=== PATIENT | male | born 1980 | race Caucasian/White ===

== ENCOUNTER 2021-09-25 07:35 | Emergency (ER) | payer BC ==
[~2021-09-25] VITALS: Ht 172.7 cm; Wt 88.5 kg
[2021-09-25 08:19] VITALS: BP 129/56
== END 2021-09-25 08:20 | disposition home or self-care (01) ==
LOC: ED 07:35
DX: L02.31 Cutaneous abscess of buttock (principal); Z90.89 Acquired absence of other organs

== ENCOUNTER 2021-11-18 10:44 | Inpatient (IN) | payer BC ==
[~2021-11-18] VITALS: Ht 172.7 cm; Wt 90.3 kg
[2021-11-18 10:56] VITALS: BP 191/120
[2021-11-18] MEDS ORDERED: Carafate1 GM PO (11:01)
[2021-11-18] MEDS ORDERED: PANTOPRAZOLE SO40 MG PO (11:02)
[2021-11-18 11:42] LABS: BASO % 0.4 % (0.0-1.0); EOS # 0.1 10*3/uL (0.0-0.4); EOS % 0.7 % (1.0-4.0); HEMATOCRIT 55.3 % (42.0-52.0); LYMPH # 1.2 10*3/uL (1.3-4.4); LYMPH % 11.1 % (27.0-41.0); MEAN CELL VOLUME 87.6 fl (80.0-94.0); MEAN CORPUSCULAR HGB 28.5 pg (27.0-31.0); MEAN CORPUSCULAR HGB CONC 32.5 g/dl (33.0-37.0); MEAN PLATELET VOLUME 9.9 fl (9.6-12.3); MONO # 0.8 10*3/uL (0.1-1.0); MONO % 7.1 % (3.0-9.0); NEUT # 8.9 10*3/uL (2.3-7.9); NEUT % 80.4 % (47.0-73.0); PLATELET COUNT AUTOMATED 261 10*3/uL (130-400); RED BLOOD COUNT 6.31 10*6/uL (4.50-5.90); RED CELL DISTRI WIDTH 13.8 % (0-14.5)
[2021-11-18 11:57] LABS: ALKALINE PHOSPHATASE 70 U/L (45-117); BUN 16 mg/dl (7-24); CHLORIDE 107 mmol/L (98-107); LIPASE 248 U/L (73-393); POTASSIUM 4.1 mmol/L (3.5-5.1); SGOT/AST 26 IU/L (3-35); SGPT/ALT 45 U/L (12-78); SODIUM 142 mmol/L (136-145); TOTAL PROTEIN 7.4 gm/dL (6.4-8.2)
[2021-11-18 14:19] LABS: BILIRUBIN Negative (Negative); BLOOD Negative (Negative); CLARITY Clear (Clear); COLOR Yellow (Yellow); GLUCOSE Trace (Negative); KETONE Negative (Negative); LEUKO ESTERASE Negative (Negative); NITRITE Negative (Negative); SPECIFIC GRAVITY >= 1.030 (1.001-1.030)
[2021-11-18 14:29] LABS: CALCIUM OXALATE CRYSTALS 1+
[2021-11-18 14:30] LABS: WBC 0-2 wbc/hpf (0-5)
[2021-11-18 14:31] LABS: EPITHELIAL CELLS 0-2
[2021-11-18 16:30] VITALS: BP 114/56
[2021-11-18 20:00] VITALS: BP 112/78; BP 137/97
[2021-11-19] VITALS: BP 140/88
[2021-11-19 06:15] LABS: BASO # 0.1 10*3/uL (0.0-0.1); BASO % 0.5 % (0.0-1.0); EOS # 0.2 10*3/uL (0.0-0.4); EOS % 1.6 % (1.0-4.0); HEMATOCRIT 47.2 % (42.0-52.0); LYMPH # 2.1 10*3/uL (1.3-4.4); LYMPH % 21.5 % (27.0-41.0); MEAN CELL VOLUME 86.1 fl (80.0-94.0); MEAN CORPUSCULAR HGB CONC 33.7 g/dl (33.0-37.0); MEAN PLATELET VOLUME 10.5 fl (9.6-12.3); MONO # 0.8 10*3/uL (0.1-1.0); MONO % 8.1 % (3.0-9.0); NEUT # 6.6 10*3/uL (2.3-7.9); NEUT % 68.1 % (47.0-73.0); PLATELET COUNT AUTOMATED 211 10*3/uL (130-400); RED BLOOD COUNT 5.48 10*6/uL (4.50-5.90); RED CELL DISTRI WIDTH 13.6 % (0-14.5); WHITE BLOOD COUNT 9.7 10*3/uL (4.8-10.8)
[2021-11-19 06:22] LABS: ALKALINE PHOSPHATASE 55 U/L (45-117); BUN 12 mg/dl (7-24); CHLORIDE 107 mmol/L (98-107); CHOLESTEROL 91 mg/dL (<200); CREATININE 1.19 mg/dL (0.70-1.30); LDL CHOLESTEROL 38 mg/dL (9-159); SGOT/AST 18 IU/L (3-35); SGPT/ALT 32 U/L (12-78); SODIUM 143 mmol/L (136-145); TOTAL PROTEIN 5.8 gm/dL (6.4-8.2); TRIGLYCERIDES 94 mg/dl (<150)
[2021-11-19 06:23] LABS: FREE T4 0.74 ng/dl (0.76-1.46)
[2021-11-19 07:08] LABS: VITAMIN D, 25-HYDROXY 54.4 ng/mL (30-100)
[2021-11-19 08:00] VITALS: BP 120/83
[2021-11-19 12:00] VITALS: BP 126/81
[2021-11-19] MEDS ORDERED: CIPRO500 MG PO (13:56)
[2021-11-19] MEDS ORDERED: HYDROCODONE-AC1 EAC1 PO (13:57)
[2021-11-19] MEDS ORDERED: METRONIDAZOLE500 M1 PO (13:57)
== END 2021-11-19 15:05 | disposition home or self-care (01) | DRG 392 ==
LOC: ED 10:44 → EDHOLD 13:26 → 5E 16:10
PROVIDERS: Emergency Medicine; Internal Medicine; ADMIT Internal Medicine; ATTEND Internal Medicine
DX: K52.9 Noninfective gastroenteritis and colitis, unspecified (principal); D72.829 Elevated white blood cell count, unspecified; E16.2 Hypoglycemia, unspecified; E56.9 Vitamin deficiency, unspecified; Z90.3 Acquired absence of stomach [part of]; Z87.891 Personal history of nicotine dependence; Z81.8 Family history of other mental and behavioral disorders; Z82.49 Family history of ischemic heart disease and other diseases of the circulatory system; R60.9 Edema, unspecified

== ENCOUNTER 2022-03-04 08:16 | Emergency (ER) | payer BC ==
[~2022-03-04] VITALS: Ht 175.2 cm; Wt 81.6 kg
[~2022-03-04 08:16] MED LIST: CIPRO500 MG PO; Carafate1 GM PO; HYDROCODONE-AC1 EAC1 PO; METRONIDAZOLE500 M1 PO; PANTOPRAZOLE SO40 MG PO
[2022-03-04 09:03] VITALS: BP 146/87
[2022-03-04] MEDS ORDERED: PREDNISONE50 MG PO (09:57)
[2022-03-04] MEDS ORDERED: VIBRAMYCIN HYC100 MG PO (09:57)
== END 2022-03-04 10:05 | disposition home or self-care (01) ==
LOC: ED 08:16
DX: L05.01 Pilonidal cyst with abscess (principal); Z87.891 Personal history of nicotine dependence; Z90.89 Acquired absence of other organs; Z98.890 Other specified postprocedural states; Z79.899 Other long term (current) drug therapy